=== PATIENT | female | born 2000 | race Caucasian/White ===

== ENCOUNTER 2024-03-04 16:13 | Outpatient (REF) | payer SELFPAY | END 2024-03-04 16:14 | disposition home or self-care (01) | LOC: LBN 16:13 | PROVIDERS: Visit Provider Advanced Practice Midwife | DX: Z34.93 Encounter for supervision of normal pregnancy, unspecified, third trimester (principal); O09.33 Supervision of pregnancy with insufficient antenatal care, third trimester | CPT/HCPCS: 80307; 80348; 87081 ==

== ENCOUNTER 2024-03-10 03:41 | Outpatient (CLI) | payer MEDICAID, SELFPAY ==
[2024-03-10 15:59] LABS: Glucose,1 Hr (Glucola) 134 mg/dL (80-140)
[2024-03-11 20:57] LABS: Hepatitis C Ab w Rflx HCV PCR Negative (Negative)
[2024-03-12 10:47] LABS: Varicella IgG Antibody Positive (See Note)
[2024-03-14 13:36] LABS: Syphilis IgG w/Reflex Nonreactive (Nonreactive)
== END 2024-03-10 03:42 | disposition home or self-care (01) ==
LOC: LBO 03:41
PROVIDERS: Visit Provider Advanced Practice Midwife
DX: Z34.93 Encounter for supervision of normal pregnancy, unspecified, third trimester (principal)
CPT/HCPCS: 36415; 82950; 86787; 86803; 86850; 86900; 86901; 86780

== ENCOUNTER 2024-03-10 14:40 | Outpatient (REF) | payer MEDICAID, SELFPAY ==
[2024-03-10 16:38] LABS: *AMPHETAMINES SCREEN URINE Negative (Negative); *BARBITURATES SCREEN URINE Negative (Negative); *BENZODIAZEPINES SCREEN URINE Negative (Negative); Cannabinoids THC Positive (Negative); Cocaine Screen,Urine Negative (Negative); METHADONE URINE SCREEN Negative (Negative); OPIATES URINE SCREEN Negative (Negative)
[2024-03-10 16:45] LABS: Tricyclic Antidepressants Negative (Negative)
[2024-03-11 11:36] LABS: Fentanyl Scr w/Rfx Confirm Negative ng/mL (<1)
[2024-03-16 16:00] LABS: Buprenorphine Negative ng/mL (Cutoff: 5.0); Norbuprenorphine Negative ng/mL (Cutoff: 2.5)
== END 2024-03-10 14:41 | disposition home or self-care (01) ==
LOC: LBN 14:40
PROVIDERS: Advanced Practice Midwife; Visit Provider Obstetrics & Gynecology
DX: F12.91 Cannabis use, unspecified, in remission (principal); Z34.93 Encounter for supervision of normal pregnancy, unspecified, third trimester; O09.33 Supervision of pregnancy with insufficient antenatal care, third trimester
CPT/HCPCS: 80307; 80348; 87086

== ENCOUNTER 2024-04-06 23:08 | Inpatient (IN) | payer MEDICAID, SELFPAY ==
[2024-04-06] VITALS (11 sets, daily range): BP systolic 103; BP diastolic 59; PULSE 86–113; RESP 18; TEMP 36.7; O2SAT 87–100
--- NOTE | 2024-04-06 23:12 | HPE_ITS ---
Date of service: 04/06/24 Time of Service: 23:12 Assessment and Plan Assessment and plan (1) Normal labor: Status: Acute Assessment and plan: 1. Admit and draw CBC and type and screen 2. Nitrous once reassuring tracing 3. Expect NVD 4. Report given to Dr. Otoole who is primary provider OB-HPI Labor/Delivery History of Present Illness Reason for Visit: Labor Check Chief Complaint: Uterine Contractions. MAGGY Calculator Estimated Delivery Date Method Current WG Current Estimate 04/08/24 Ultrasound #1 39w 5d Other Estimates 03/24/24 LMP (Certain) 41w 6d History of Present Expected Delivery Route/Plan - MD SUN- Omar (first child) GBS negative Specific Issues/Plan 1. Limited care at [facility], resumed care at [facility] at 35 weeks 2. Marijuana use. UDS @ 36 wks = THC+, need POSC ___ 3. Tobacco use - has cut down to 3-4 cigarettes per day. 4. History of anxiety and depression - no medications currently 5. labs reviewed. A+, antibody negative. RPR nonreactive. Hepatitis B surface antigen negative. GC chlamydia negative. Pap smear in 2020 was normal. The remainder of her labs were ordered and drawn 03/10/2024., GTT 134 Narrative: Yuri and Omar present with complaint of regular uterine contractions since 1600 today. Denies ROM but has had some show. Baby has been active. She denies any complications of . Prefers to use Nitrous for pain management. KH Review of Systems All systems reviewed & are unremarkable except as noted in HPI and below (rectal pressure) PFSH All Active Problems (Updated 04/06/24 @ 23:23 by Ary Savage CNM) Rubella non-immune status, antepartum (Acute) Normal labor (Acute) Marijuana use during (Acute) Limited care (Acute) (Acute) Tobacco dependence (Acute) Asthma (Chronic) Anxiety (Chronic) Depression (Chronic) Medical History History of marijuana use Family History Other Breast cancer Hypertension Thyroid disease Social History Smoking/Tobacco Use Status: Current every day Smoking risk assessment performed?: Yes Alcohol Intake: current Alcohol Intake frequency: a few times a week Substance use type: former substance user Date of last use: marijuana Household members: children Number of Children: 2 Do you need help understanding health information?: 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 Date GA/Weeks # Preg Succ Route Wgt Sex Labor Lgth Anesth esia Location [facility] 08/14/16 40 Yes vaginal 7 lb 3 oz Male [facility] 04/17/21 40 Yes vaginal 7 lb Male [facility] Delivery Date: 08/14/16 Last Updated by: Ary Kamara CNM Juliyan anemia. Arrived at 8 cms, pitocin augmentation Delivery Date: 04/17/21 Last Updated by: Ary Kamara CNM Edward Arrived at 7.5 cms Meds Allergies and Home Medications Allergies Allergy/AdvReac Type Severity Reaction Status Date / Time No Known Allergies Allergy Verified 04/06/24 23:16 Home Medications ?Medication ?Instructions ?Recorded ?Confirmed ?Type vitamins no.119-iron tab PO 03/04/24 03/23/24 History fumarate 29 mg-folic acid 1 mg tablet Exam Physical Exam Narrative: VS pending Constitutional Constitutional: no acute distress, average body habitus and cooperative Detailed Labor and Delivery Exam Dilation: 7 Effacement (%): 90 station: -1 Cervix position: posterior Consistency: soft Young Score: Cervical Points Exam 0 1 2 3 Dilation Closed 1-2cm 3-4 cm 5-6cm Effacement 0-30% 40-50% 60-70% 80% Consistency Firm Medium Soft Station -3 -2 -1,0 +1,+2 Position Posterior Mid Anterior YOUNG Score(Cervical Ripeness Score): 10 Amniotic Membrane Status: Intact Contraction Frequency(min): 3 Contraction Duration(sec): 60 Contraction Intensity: Strong Fetus A Heart Rate Baseline: 110 Assessment Note: tracing is interrupted with maternal movement, HR WNL with early decel with 2 contractions HEENT Exam HEENT Exam: Normal Neck Exam Neck Exam: Normal (normal visual inspection) Respiratory Exam Respiratory Exam: Normal Cardiovascular Exam Cardiovascular Exam: Normal Rectal Exam Rectal Exam: Not Done Exam Exam: Normal Extremities Exam Extremities Exam: Normal Back/Spine/Pelvis Exam Back Exam: Normal Pelvis Adequate: Yes Skin Exam Skin Exam: Normal Neurological Exam Neurological Exam: Normal Psychiatric Exam Psychiatric Exam: Normal Results Results Group Beta Strep: Negative Blood Type: A+ Rubella Status: Nonimmune Varicella Immunity: Immune (2.73) Risk Assessment Risk for Shoulder Dystocia Historical/Initial OB: NEGATIVE FOR: Pelvic Abnormality, Pre- BMI>30, Previous Shoulder Dystocia or Previous Macrosomia Delivery Plan @ 40 wks: nvd Risk for Pre-Eclampsia Date Initiated/Initials: no risk factors Risk for Post- Hemorrhage Initial: NEGATIVE FOR: Multiple Gestation, Previous PPH, Known Clotting Deficiency, Grand Multiparity or Anticoagulation Risks Reviewed Risks Reviewed Upon Admission: Yes (low risk)
[2024-04-06 23:56] LABS: HCT 38.3 % (36.0-46.0); HGB 12.7 g/dL (11.2-15.7); MCH 28.2 pg (27.0-33.0); MCHC 33.2 % (32.0-36.0); MCV 85 fL (80-95); MPV 11.7 fL (8.0-11.0); Platelet Count 201 10^3/uL (130-400); RDW 13.5 % (11.7-14.6); RDW-SD 41.8 fL; WBC 17.32 10^3/uL (4.4-10.8)
[2024-04-07] VITALS (23 sets, daily range): BP systolic 96–126; BP diastolic 45–70; PULSE 68–105; RESP 16–18; TEMP 36.5–37.2; O2SAT 97–100
[2024-04-07] MEDS: Ibuprofen 600 MG TAB (01:09)
[2024-04-07] MEDS: Acetaminophen 325 MG TAB 650 MG PO ×3 (01:10→17:42)
[2024-04-07] MEDS: Normal Saline Flush 10 ML SYR IVP (01:14)
[2024-04-07 03:43] LABS: *AMPHETAMINES SCREEN URINE Negative (Negative); *BARBITURATES SCREEN URINE Negative (Negative); *BENZODIAZEPINES SCREEN URINE Negative (Negative); Cannabinoids THC Positive (Negative); Cocaine Screen,Urine Negative (Negative); METHADONE URINE SCREEN Negative (Negative); OPIATES URINE SCREEN Negative (Negative)
[2024-04-07 03:46] LABS: Tricyclic Antidepressants Negative (Negative)
--- NOTE | 2024-04-07 09:33 | W.OBDELIVERY ---
Date of service: 04/07/24 Time of Service: 09:34 OB Labor/ Delivery Information Baby A Delivery Delivery Method: Spontaneaous Presentation: Cephalic Cephalic Position: Vertex Breech Position: N/A Cord Description-Baby A: 3 Vessels, Nuchal Cord and Reduced Amniotic Fluid: Clear Estimated Blood Loss: 100 Delivery Outcome: Liveborn Complications: none Infant Transferred: Remains with Mother Providers Doctor: Abril Otoole Nurse: Lisette Sinha Nurse: Deana Moraes Labor/Delivery Information Number of Babies in Womb: 1 Steroids Given: None Reason Steroids Not Administered: N/A Group Beta Strep: Negative Antibiotics Administered: No Rubella Status: Nonimmune Blood Type: A+ Varicella Immunity: Immune (2.73) Medication in Delivery: nitrous Maternal Complications: Precipitous Labor(<3hrs) Shoulder Dystocia: No Stages of Labor Onset of Labor Date: 04/06/24 Onset of Labor Time: 16:00 ROM Baby A: 04/06/24 ROM Baby A: 23:35 ROM Total Time- Baby A: [id number] Delivery Date-Baby A: 04/07/24 Delivery Time-Baby A: 00:34 Placenta Delivery Date-Baby A: 04/07/24 Placenta Delivery Time-Baby A: 00:45 Labor-Stage 3 Duration: 11 minutes Total Length of Labor-Baby A: 8 hours and 34 minutes Placenta Cultured: No Placenta Status: Delivered Baby A Infant Gender: Female Gestational Status: Term (39-41.6 wks) Gestational Age in Weeks/Days: 39 Weeks and 6 Days weight: 7 lb 1.582 oz Length-Baby A: 18.9 in Head Circumference-Baby A: 13.39 in Score-1 Minute Interval(Baby A) Heart Rate-1 minute: 100 BPM or Greater Respiratory Effort- 1 minute: Spontaneous/Strong Cry Muscle Tone-1 minute: Active Movement Reflex Response-1 minute: Prompt Response Color-1 minute: Pallor or Cyanosis Total Score-1 minute: 8 Score-5 Minute Interval(Baby A) Heart Rate- 5 minute: 100 BPM or Greater Respiratory Effort-5 minute: Spontaneous/Strong Cry Muscle Tone-5 minute: Active Movement Reflex Response-5 minute: Prompt Response Color-5 minute: Pallor or Cyanosis Total Score- 5 minute: 8
[2024-04-07] MEDS: Ibuprofen 600 MG TAB PO ×2 (11:43→17:42)
[2024-04-07] MEDS: Docusate Sodium 100 MG CAP PO (11:45)
[2024-04-07] MEDS: Dibucaine 1% 28 GM TUBE TP (17:49)
[2024-04-07] MEDS: Hamamelis Leaf/Glycerin 100 EACH BOX PR (17:50)
--- NOTE | 2024-05-11 08:50 | DSE_ITS ---
Date of service: 05/11/24 Time of Service: 08:50 DS: Diagnosis Discharge Diagnosis (1) Normal labor: Status: Acute (2) Limited care: Status: Acute (3) Tobacco dependence: Status: Acute (4) Vaginal delivery: Status: Acute Discharge Plan Disposition Patient Disposition: Against Medical Advice Condition: Good Discharge Details Reason For Visit: Labor Check Admit Date/Time: 04/06/24 23:08 Admit Provider: Abril Otoole Attending Provider: Abril Otoole Primary Care Provider: Unknown,Unknown Hospital Course Hospital Course: Pt arrived to Center 7.5cm dilated and rapidly progressed to complete. of male infant over 2nd degree perineal laceration which was repaired at the time delivery. Pt requested early delivery from hosp approximately 24hrs after delivery. Left against medical advise. Was instructed to call [facility] to make f/u appt for PP care. Home Meds and New Rx's Prescriptions: No Action PNV 119-iron fum-folic acid 29 mg iron- 1 mg tablet PO Discharge Instructions Stand Alone Forms: BC Instructions, BC Post Vaginal Deliver Activity:: Activity as Tolerated Equipment/Supplies:: No Equipment Needed Diet:: As Tolerated Discharge Orders Discharge Orders: Discharge Order (Routine); Ordered 05/11/24 Ordered By: Abril Otoole Discharge Data Discharge Date/Time-TO BE ENTERED AT DEPARTURE: 04/07/24 18:15 OB:DS Summary Summary Vaginal Delivery Method: Spontaneaous Episiotomy Description: None Laceration Description: Perineal Laceration Extension: Second Degree Contraception Discussed Contraception Discussed: Yes (during course.) Contraceptive Plan: IUD, Blain Gender-Baby A: Female weight: 7 lb 1.582 oz Status at Discharge Functional status at discharge: independent ambulation Overall status at discharge: patient is progressing back to baseline Mental Status: mental status grossly normal Speech and Movement: speech and movement normal Mood: congruent mood Affect: normal affect Quality:SDOH Health Related Social Needs: No Data to Display Exam Physical Exam Vital signs: Temp Pulse Resp BP Pulse Ox 97.7 F 68 16 96/65 L 99 04/07/24 15:55 04/07/24 15:55 04/07/24 15:55 04/07/24 15:55 04/07/24 15:55 Vital Signs Reviewed: Yes Narrative: PPD 1. Pt requesting discharge today. Constitutional Constitutional: no acute distress HEENT Exam HEENT Exam: Not Done Neck Exam Neck Exam: Not Done Respiratory Exam Respiratory Exam: Normal Cardiovascular Exam Cardiovascular Exam: Normal Abdominal Exam Comments: soft, gravid, non-tender Fundal Exam Fundus: Below Umbilicus and Firm Rectal Exam Rectal Exam: Not Done Extremities Exam Extremity Exam: Normal Back/Spine/Pelvis Exam Back Exam: Not Done Skin Exam Skin Exam: Normal Neurological Exam Neurological Exam: Normal Psychiatric Exam Psychiatric Exam: Normal PFSH All Active Problems (Updated 05/11/24 @ 08:51 by Abril Otoole MD) Vaginal delivery (Acute) Rubella non-immune status, antepartum (Acute) Normal labor (Acute) Marijuana use during (Acute) Limited care (Acute) (Acute) Tobacco dependence (Acute) Asthma (Chronic) Anxiety (Chronic) Depression (Chronic) Medical History History of marijuana use Family History Other Breast cancer Hypertension Thyroid disease Social History Smoking/Tobacco Use Status: Current every day Smoking risk assessment performed?: Yes Alcohol Intake: current Alcohol Intake frequency: a few times a week Substance use type: former substance user Date of last use: marijuana Household members: children Housing: apartment Number of Children: 2 Do you need help understanding health information?: 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 Date GA/Weeks # Preg Succ Route Wgt Sex Labor Lgth Anesth esia Location Prov [facility] 08/14/16 40 Yes vaginal 7 lb 3 oz Male [facility] 04/17/21 40 Yes vaginal 7 lb Male [facility] 04/07/24 40 No Yes vaginal Female Dr Prajapati nor Delivery Date: 08/14/16 Last Updated by: TANYA Muñoziyan anemia. Arrived at 8 cms, pitocin augmentation Delivery Date: 04/17/21 Last Updated by: Ary Kamara CNM Edward Arrived at 7.5 cms DS: Data Vitals/I&O Vitals and I&O: Vital Signs Temperature 97.7 F 04/07/24 15:55 Temperature Source Oral 04/07/24 15:55 Pulse 68 04/07/24 15:55 Pulse Rhythm Regular 04/07/24 09:00 Respiratory Rate 16 04/07/24 15:55 Respiratory Depth Normal 04/07/24 03:10 Blood Pressure 96/65 L 04/07/24 15:55 Blood Pressure Mean 75 04/07/24 15:55 Pulse Oximetry 99 04/07/24 15:55 Oxygen Delivery Method Room Air 04/07/24 00:24 Oxygen Flow Rate 0 04/07/24 00:24 Pain Level 7 04/07/24 17:42 Comment WNL 04/07/24 03:15
== END 2024-04-07 18:15 | disposition left against medical advice (07) | DRG 807 ==
LOC: OBS 04-07 13:37 → BCD 04-07 13:41
PROVIDERS: Advanced Practice Midwife; Admitting Provider Obstetrics & Gynecology Gynecology; Visit Provider Obstetrics & Gynecology Gynecology
DX: O99.334 Smoking (tobacco) complicating childbirth (principal); Z37.0 Single live birth; O99.324 Drug use complicating childbirth; Z3A.39 39 weeks gestation of pregnancy; O99.344 Other mental disorders complicating childbirth; F41.8 Other specified anxiety disorders; F12.90 Cannabis use, unspecified, uncomplicated; O62.3 Precipitate labor; F17.210 Nicotine dependence, cigarettes, uncomplicated; O99.52 Diseases of the respiratory system complicating childbirth; J45.909 Unspecified asthma, uncomplicated
CPT/HCPCS: 80307; 85027; 86850; 86900; 86901

== ENCOUNTER 2024-07-25 09:55 | Emergency (ER) | payer MEDICAID, SELFPAY ==
[2024-07-25 10:01] VITALS: BP 113/69; PULSE 110; RESP 18; TEMP 36.8; O2SAT 100
[2024-07-25 10:04] VITALS: BP 113/69; PULSE 98; RESP 18; TEMP 36.8; O2SAT 98
--- NOTE | 2024-07-25 10:15 | ED.GENADUL_ITS ---
Discharge Plan Disposition Patient Disposition: Home Condition: Good Discharge Details Clinical Impression: Acute upper respiratory infection Primary Care Provider: Unknown,Unknown ED Provider: Parth Moore Home Meds and New Rx's Prescriptions: No Action PNV 119-iron fum-folic acid 29 mg iron- 1 mg tablet 1 tab PO Discharge Instructions Instructions: Upper Respiratory Infection ED Additional Instructions: At this time your COVID flu and RSV test has returned negative. I suspect your symptoms are being caused by a different type of virus. Currently there is no evidence to suggest pneumonia. Please take Tylenol as needed for fever or chills. Please drink plenty fluids and stay well-hydrated. If your cough worsens or your symptoms worsen please return for reassessment. If you notice any worsening of your symptoms, or any new symptoms such as vomiting, diarrhea, fever, chills, shortness of breath, chest pain, numbness, weakness, or fainting , please return immediately to the emergency department for reevaluation. Please follow up with your primary care provider as soon as possible for reassessment and reevaluation. As always, it was a pleasure participating in your medical care today. Stand Alone Forms: Work Release Discharge Data Discharge Date/Time-TO BE ENTERED AT DEPARTURE: 07/25/24 11:31 HPI General Date/Time Provider Initiated Documentation: 07/25/24 10:04 . HPI Narrative: This is a pleasant 23-year-old female with a past medical history of anxiety, depression, asthma, who is 4 months , who presents today for upper respiratory-like symptoms. Patient states that for the last 24 hours she has had fever, chills, body aches, sore throat and fatigue. She has 2 children at home who are also sick with ear infections. She denies any vomiting or diarrhea. No productivity to the cough. No pleuritic chest pain. No history of PEs. She was a smoker but quit about 5 months ago. No other complaints at this time. She was not able to get a flu shot this year or a recent COVID booster. Related Data Home Medications ?Medication ?Instructions ?Recorded ?Confirmed vitamins no.119-iron 1 tab PO 03/04/24 03/23/24 fumarate 29 mg-folic acid 1 mg tablet Allergies Allergy/AdvReac Type Severity Reaction Status Date / Time No Known Allergies Allergy Verified 07/25/24 10:01 General Stated Complaint: RespSymp EVA: 4 Exam Narrative Exam Narrative: 1.Const: Well-nourished, Well-developed, appearing stated age 2.Eyes: PERRL, no conjunctival injection, and symmetrical lids. 3.ENT: Atraumatic external nose and ears. Moist MM. Neck: Symmetric, trachea midline, No thyromegaly. A very small sliver of fluid in the inferior component of the left tympanic membrane. No purulence. No bulging. No significant erythema. Right tympanic membrane is unremarkable. No erythema in the posterior oropharynx. No tonsillar exudates. No nuchal rigidity. 4.CVS: +S1/S2, Peripheral pulses 2+ and equal in all extremities. Brisk capillary refill in all extremities. 5.RESP: Unlabored respiratory effort. Clear to auscultation bilaterally. No wheezes rales or rhonchi 6.GI: Soft, Nontender/Nondistended, No hepatosplenomegaly. No guarding or rebound. 7.MSK: Normocephalic/Atraumatic, Extremities w/o deformity or ttp No cyanosis or clubbing, Normal movement of all extremities 8.Skin: Warm, Dry. No rashes or lesions. 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 Sensation grossly intact, no focal neurologic deficits. 10.Psych: (AAO) x3. Appropriate mood and affect Course Vital Signs Vital signs: Vital Signs Temperature 36.8 C 07/25/24 10:01 Pulse 110 H 07/25/24 10:01 Respiratory Rate 18 07/25/24 10:01 Blood Pressure 113/69 07/25/24 10:01 Pulse Oximetry 100 07/25/24 10:01 Temperature 36.8 C 07/25/24 10:04 Temperature Source Oral 07/25/24 10:04 Pulse 98 H 07/25/24 10:04 Respiratory Rate 18 07/25/24 10:04 Respiratory Effort Normal 07/25/24 10:08 Respiratory Depth Normal 07/25/24 10:08 Blood Pressure 113/69 07/25/24 10:04 Blood Pressure Position Sitting 07/25/24 10:04 Pulse Oximetry 98 07/25/24 10:04 Oxygen Delivery Method Room Air 07/25/24 10:04 Oxygen Flow Rate 0 07/25/24 10:01 Pain Level 7 07/25/24 10:04 Medical Decision Making This is a pleasant 23-year-old female with a past medical history of anxiety, depression, asthma, who is 4 months , who presents today for upper respiratory-like symptoms. Patient states that for the last 24 hours she has had fever, chills, body aches, sore throat and fatigue. She has 2 children at home who are also sick with ear infections. She denies any vomiting or diarrhea. No productivity to the cough. No pleuritic chest pain. No history of PEs. She was a smoker but quit about 5 months ago. No other complaints at this time. She was not able to get a flu shot this year or a recent COVID booster. Exam demonstrates well-appearing female, small sliver of clear fluid behind the left tympanic membrane, no evidence of otitis media though. No erythema bulging or other abnormality. No erythema in the posterior pharynx. No nuchal rigidity. Clear lung sounds. Stable vital signs. Symptoms appear consistent with a viral upper respiratory infection. Will test for COVID flu and RSV, monitor closely and reassess. Symptoms inconsistent with PE, dissection, severe pneumonia. COVID flu and RSV negative. Patient remains notably stable. Because of the small effusion I would not recommend antihistamines secondary to the potential for perforation. Recommend continue NSAID therapy at home with Tylenol, supportive therapy with fluids and rest. Discussed red flags which return. I have extensively reviewed the treatment plan and discharge instructions with the patient. I have addressed all patient concerns at this time. The patient was made aware of what symptoms to monitor for that would warrant a return to the emergency department. Discussed the plan with the patient, they demonstrate verbal understanding and agreement with our assessment and plan at this time. The documentation in this chart was dictated using [employer] dictation software. Please excuse any dictation errors. Quality:SDOH Health Related Social Needs: No Data to Display PFSH All Active Problems (Updated 07/25/24 @ 11:15 by Parth Moore DO) Acute upper respiratory infection (Acute) Vaginal delivery (Acute) Rubella non-immune status, antepartum (Acute) Normal labor (Acute) Marijuana use during (Acute) Limited care (Acute) (Acute) Tobacco dependence (Acute) Asthma (Chronic) Anxiety (Chronic) Depression (Chronic) Medical History History of marijuana use Family History Other Breast cancer Hypertension Thyroid disease Social History Smoking/Tobacco Use Status: Former Tobacco Use Smoking risk assessment performed?: Yes Alcohol Intake: current Alcohol Intake frequency: a few times a week Substance use type: former substance user Date of last use: marijuana Household members: children Housing: apartment Number of Children: 2 Do you need help understanding health information?: 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 Date GA/Weeks # Preg Succ Route Wgt Sex Labor Lgth Anesth esia Location [facility] 08/14/16 40 Yes vaginal 3260.195 g Male [facility] 04/17/21 40 Yes vaginal 3175.147 g Male [facility] 04/07/24 40 No Yes vaginal Female Dr Prajapati nor Delivery Date: 08/14/16 Last Updated by: Ary Kamara CNM Juliyan anemia. Arrived at 8 cms, pitocin augmentation Delivery Date: 04/17/21 Last Updated by: TANYA Muñoz Arrived at 7.5 cms
[2024-07-25 10:54] LABS: COVID-19 PCR Negative (Negative); Influenza A PCR Negative (Negative); Influenza B PCR Negative (Negative); RSV PCR Negative (Negative)
[2024-07-25 10:59] LABS: Source Nasopharynx
== END 2024-07-25 11:31 | disposition home or self-care (01) ==
PROVIDERS: Emergency Provider Student in an Organized Health Care Education/Training Program
DX: J06.9 Acute upper respiratory infection, unspecified (principal)
CPT/HCPCS: 87637; 99282; 99283

== ENCOUNTER 2024-07-28 14:08 | Outpatient (REF) | payer MEDICAID, SELFPAY | END 2024-07-28 14:09 | disposition home or self-care (01) | LOC: LBN 14:08 | PROVIDERS: Visit Provider Physician Assistant Medical | DX: J02.9 Acute pharyngitis, unspecified (principal) | CPT/HCPCS: 87070 ==